=== PATIENT | male | born 1995 | race Caucasian/White ===

== ENCOUNTER 2017-03-27 12:24 | Emergency (ER) | payer BC, MEDICAID ==
--- NOTE | 2017-03-27 13:07 | EDM.PDOC ---
ED HPI GENERAL MEDICAL PROBLEM - General Chief Complaint: Skin Complaint Stated Complaint: SMELL COMING FROM [place] PAINFUL Time Seen by Provider: 03/27/17 12:53 - History of Present Illness INITIAL COMMENTS - FREE TEXT/NARRATIVE: HISTORY AND PHYSICAL: History of present illness: The patient is a 21-year-old male with no stated GI or medical history and states he had an appendectomy here laparoscopically 5 years ago and presents with complaints of scar irritation that started about 5 days ago and sensitivity at his umbilical scar and then yesterday he noticed that his umbilicus was more protuberant and this morning he woke with drainage from that. It has not been copious drainage just some crusting and some malodorous fluid. He was concerned that he ate something spicy 5 days ago and may have triggered this. He has not had vomiting fever chills diarrhea or diffuse abdominal pain and says the discomfort is localized to the umbilical area. Please note that we were able to find a medical records that the patient did have a laparoscopic appendectomy performed here in [address] Bartholomew Review of systems: As per history of present illness and below otherwise all systems reviewed and negative. Past medical history: As per history of present illness and as reviewed below otherwise noncontributory. Surgical history: As per history of present illness and as reviewed below otherwise noncontributory. Social history: No reported history of drug or alcohol abuse. Family history: As per history of present illness and as reviewed below otherwise noncontributory. Physical exam: Gen.: Well-developed well-nourished male who is nontoxic and vital signs of been reviewed by me. HEENT: Atraumatic, normocephalic, negative for conjunctival pallor or scleral icterus, mucous membranes moist, throat clear, neck supple, nontender, trachea midline. Lungs: Clear to auscultation, breath sounds equal bilaterally, chest nontender. Heart: S1S2, regular rate and rhythm no overt murmurs Abdomen: Soft, nondistended, nontender. Negative for masses or hepatosplenomegaly. NABS. There is a supraumbilical scar seen which is well- healed and mildly tender on palpation and is somewhat pinkish red in color and within the umbilicus there is a small oval area of tenderness and granulation tissue which may be a soft umbilical hernia area there is crusting in the area and after cleansing there is some thick fluid is able to be expressed from deep within the umbilicus with a Q-tip. It is not copious. It is not foul-smelling. There is no surrounding erythema and the remainder of the abdomen has no rebound guarding or tenderness. Pelvis: Stable nontender. Genitourinary: Deferred. Rectal: Deferred. Extremities: Atraumatic, negative for cords or calf pain. Neurovascular unremarkable. Neuro: Awake, alert, oriented. Cranial nerves II through XII unremarkable. Cerebellum unremarkable. Motor and sensory unremarkable throughout. Exam nonfocal. Diagnostics: CBC CMP abdominal x-rays wound culture Therapeutics: 1428: Case was discussed with Dr. Wall who agrees that he can follow this patient in clinic and would like a culture of the fluid at the umbilicus to be done which I have done. He agrees to start the patient on Bactrim and will follow the patient in the clinic. The patient is aware of this care plan and is understanding of it. The patient was instructed that likely this small protrusions/umbilical hernia is causing inability to properly clean the area which has caused the infection. Impression: omphalitis, small umbilical hernia stable Definitive disposition and diagnosis as appropriate pending reevaluation and review of above. abdomen Pain Score (Numeric/FACES): 6 - Related Data Allergies Allergy/AdvReac Type Severity Reaction Status Date / Time No Known Allergies Allergy Verified 03/27/17 12:50 Home Meds: Home Meds . [Unable to Verify Home Med List] 03/27/17 [History] Past Medical History - Past Surgical History GI Surgical History: Reports: Appendectomy Social & Family History - Family History Family Medical History: Noncontributory - Tobacco Use Smoking Status *Q: Current Every Day Smoker Years of Tobacco use: 4 Packs/Tins Daily: 0.5 - Alcohol Use Days Per Week of Alcohol Use: 1 Number of Drinks Per Day: 7 Total Drinks Per Week: 7 - Recreational Drug Use Recreational Drug Use: No ED ROS GENERAL - Review of Systems Review Of Systems: ROS reveals no pertinent complaints other than HPI. ED EXAM, SKIN/RASH Exam: See Below (see dictation) Course - Vital Signs Last Recorded V/S: Last Vital Signs Temp 36.5 C 03/27/17 12:50 Pulse 100 03/27/17 12:50 Resp 18 03/27/17 12:50 BP 133/71 03/27/17 12:50 Pulse Ox 100 03/27/17 12:50 - Orders/Labs/Meds Orders: Active Orders 24 hr Category Date Time Status CULTURE WOUND [RM] Stat Lab 03/27/17 14:52 Ordered Labs: Laboratory Tests 03/27/17 03/27/17 Range/Units 13:11 13:11 WBC 8.56 (4.0-11.0) K/uL RBC 5.02 (4.50-5.90) M/uL Hgb 16.3 (13.0-17.0) g/dL Hct 47.1 (38.0-50.0) % MCV 93.8 (80.0-98.0) fL MCH 32.5 H (27.0-32.0) pg MCHC 34.6 (31.0-37.0) g/dL RDW Std Deviation 45.3 (28.0-62.0) fl RDW Coeff of Cain 13 (11.0-15.0) % Plt Count 273 (150-400) K/uL MPV 9.60 (7.40-12.00) fL Neut % (Auto) 69.6 (48.0-80.0) % Lymph % (Auto) 20.2 (16.0-40.0) % [place] % (Auto) 8.6 (0.0-15.0) % Eos % (Auto) 1.4 (0.0-7.0) % Baso % (Auto) 0.2 (0.0-1.5) % Neut # (Auto) 6.0 H (1.4-5.7) K/uL Lymph # (Auto) 1.7 (0.6-2.4) K/uL [place] # (Auto) 0.7 (0.0-0.8) K/uL Eos # (Auto) 0.1 (0.0-0.7) K/uL Baso # (Auto) 0.0 (0.0-0.1) K/uL Nucleated RBC % 0.0 /100WBC Nucleated RBCs # 0 K/uL Sodium 141 (136-146) mmol/L Potassium 4.3 (3.5-5.1) mmol/L Chloride 105 (98-110) mmol/L Carbon Dioxide 24 (21-31) mmol/L BUN 14 (6.0-23.0) mg/dL Creatinine 0.9 (0.6-1.5) mg/dL Est Cr Clr Drug Dosing 149.69 mL/min Estimated GFR (MDRD) > 60.0 ml/min Glucose 95 (60-110) mg/dL Calcium 9.8 (8.8-10.8) mg/dL Total Bilirubin 0.3 (0.1-1.5) mg/dL AST 19 (5-40) IU/L ALT 17 (8-54) IU/L Alkaline Phosphatase 74 (40-150) Total Protein 7.5 (6.0-8.0) g/dL Albumin 4.5 (3.5-5.0) g/dL Globulin 3.0 (2.0-3.5) g/dL Albumin/Globulin Ratio 1.5 (1.3-2.8) Departure - Departure Time of Disposition: 14:54 Disposition: Home, Self-Care 01 Condition: Good Clinical Impression: Omphalitis in adult Umbilical hernia Qualifiers: Obstruction and gangrene presence: without obstruction or gangrene Qualified Code(s): K42.9 - Umbilical hernia without obstruction or gangrene - Discharge Information Referrals: PCP,None [Primary Care Provider] - Forms: ED Department Discharge Additional Instructions: The following information is given to patients seen in the emergency department who are being discharged to home. This information is to outline your options for follow-up care. We provide all patients seen in our emergency department with a follow-up referral. The need for follow-up, as well as the timing and circumstances, are variable depending upon the specifics of your emergency department visit. If you don't have a primary care physician on staff, we will provide you with a referral. We always advise you to contact your personal physician following an emergency department visit to inform them of the circumstance of the visit and for follow-up with them and/or the need for any referrals to a consulting specialist. The emergency department will also refer you to a specialist when appropriate. This referral assures that you have the opportunity for followup care with a specialist. All of these measure are taken in an effort to provide you with optimal care, which includes your followup. Under all circumstances we always encourage you to contact your private physician who remains a resource for coordinating your care. When calling for followup care, please make the office aware that this follow-up is from your recent emergency room visit. If for any reason you are refused follow-up, please contact the [facility] emergency department at and ask to speak to the emergency department charge nurse. [facility] Professional Building [address] [place] [phone] Please call and schedule a follow-up with one of our surgeons, Dr. Wall was contacted today about you if you would like to see him. Please take antibiotics as directed and try to keep area dry and clean. Use pain meds vitamins given as needed and also use [id number] ibuprofen. Expect some drainage from the area and return to ER as needed and as discussed - My Orders Last 24 Hours: My Active Orders 03/27/17 14:52 CULTURE WOUND [RM] Stat - Assessment/Plan Last 24 Hours: My Active Orders 03/27/17 14:52 CULTURE WOUND [RM] Stat
[2017-03-27 13:46] LABS: CHLORIDE,CL 105 mmol/L (98-110); SODIUM,NA 141 mmol/L (136-146)
--- NOTE | 2017-03-27 14:50 | CR ---
EXAMINATION: Chest and abdomen HISTORY: Pain COMPARISON: CT dated 09/15/2010 TECHNIQUE: AP chest FINDINGS: The lungs are clear without focal consolidation. No pleural effusion or pneumothorax. Cardi omediastinal silhouette is normal. There is a nonobstructive bowel gas pattern. No free air under the diaphragm. No abnormal calcificati ons project over the kidneys. No organomegaly. Visualized osseous structures appear normal. IMPRESSION: Unremarkable chest/abdomen radiographs.
== END 2017-03-27 15:20 | disposition home or self-care (01) ==
LOC: MW.ED 12:24
DX: K42.9 Umbilical hernia without obstruction or gangrene (principal); P38.9 Omphalitis without hemorrhage; F17.210 Nicotine dependence, cigarettes, uncomplicated
CPT/HCPCS: 36415; 74022; 74022-26; 80053; 85025; 87070; 99284